=== PATIENT | male | born 1965 | race Two or more races ===

== ENCOUNTER 2018-08-28 11:44 | Outpatient (CLI) | payer OTHER ==
[~2018-08-28 11:44] MED LIST: XARELTO15 MG PO; XARELTO20 MG PO
== END 2018-08-28 16:08 | disposition home or self-care (01) ==
LOC: RAD 11:44
DX: M89.772 Major osseous defect, left ankle and foot (principal); K09.8 Other cysts of oral region, not elsewhere classified

== ENCOUNTER 2018-10-27 11:58 | Outpatient (CLI) | payer OTHER | END 2018-10-27 13:10 | disposition home or self-care (01) | LOC: RAD 501 11:58 | DX: M54.5 Low back pain (principal) ==

== ENCOUNTER 2019-04-10 15:35 | Outpatient (CLI) | payer OTHER | END 2019-04-10 16:00 | disposition home or self-care (01) | LOC: RAD 15:35 | DX: M19.011 Primary osteoarthritis, right shoulder (principal); M19.041 Primary osteoarthritis, right hand ==

== ENCOUNTER → 2023-08-06 08:59 | Outpatient (CLI) | payer OTHER | END | disposition home or self-care (01) | LOC: NUCLEAR 08:59 | PROVIDERS: ATTEND Internal Medicine Hematology & Oncology | DX: I87.2 Venous insufficiency (chronic) (peripheral) (principal); Z86.718 Personal history of other venous thrombosis and embolism ==